=== PATIENT | female | born 1995 | race Caucasian/White ===

== ENCOUNTER 2021-03-02 03:41 | Inpatient (IN) ==
[2021-03-02] MEDS ORDERED: Naloxone 0.4 MG/ML INJ IVP PRN (04:08)
[2021-03-02] MEDS ORDERED: Ondansetron 4 MG/2 ML VIAL IVP PRN (04:08)
[2021-03-02] MEDS ORDERED: *HR* Nalbuphine 10 MG/ML AMPUL IV PRN (04:08)
[2021-03-02] MEDS ORDERED: Lidocaine 1% 20 ML MDV INFILT PRN (04:08)
[2021-03-02] MEDS ORDERED: miSOPROStoL 25 MCG TABLET PO PRN (04:08)
[2021-03-02] MEDS ORDERED: Famotidine 20 MG/2 ML VIAL IVP PRN (04:08)
[2021-03-02] MEDS ORDERED: Metoclopramide 10 MG/2 ML VIAL IVP PRN (04:08)
[2021-03-02 04:34] LABS: Eosinophils # 0.1 K/mcL (0.0-0.6); Eosinophils % 0.6 %; Hematocrit 35.8 % (35.3-44.9); Hemoglobin 11.6 g/dL (11.5-15.4); Immature Granulocytes % 0.3 % (0-4); Lymphocytes # 1.8 K/mcL (0.6-4.6); Lymphocytes % 18.5 %; Mean Corpuscular HGB Conc 32.4 g/dL (31.6-35.5); Mean Corpuscular Hemoglobin 27.7 pg (28.0-33.3); Mean Corpuscular Volume 85.4 fL (83.0-100.0); Mean Platelet Volume 9.5 fL (9.4-12.4); Monocytes # 0.6 K/mcL (0.0-1.3); Monocytes % 6.5 %; Neutrophils # 7.2 K/mcL (1.6-8.9); Platelet Count 255 K/mcL (140-400); Red Blood Count 4.19 M/mcL (3.82-4.97); Red Cell Distribution Width 15.1 % (11.5-14.5); Segmented Neutrophils % 74.1 %; White Blood Count 9.7 K/mcL (4.3-11.1)
[2021-03-02 04:45] LABS: Amphetamine Screen,Urine Negative ng/mL (Cutoff=1000); Barbiturate Screen,Urine Negative ng/mL (Cutoff=200); Benzodiazepines Screen,Urine Negative ng/mL (Cutoff=200); Cannabinoid Screen,Urine Negative ng/mL (Cutoff = 50); Cocaine Screen,Urine Negative ng/mL (Cutoff= 300); Opiate Screen,Urine Negative ng/mL (Cutoff=300); Phencyclidine Screen,Urine Negative ng/mL (Cutoff=25)
[2021-03-02] MEDS: Ringers Solution, Lactated 1,000 ML IVC SCH ×2 (05:22→10:39)
[2021-03-02 05:32] LABS: Influenza A PCR Negative (Negative); Influenza B PCR Negative (Negative); Resp. Syncytial Virus PCR Negative (Negative)
[2021-03-02 05:33] LABS: SARS-CoV-2 by PCR (In House) Negative (Negative)
[2021-03-02] MEDS ORDERED: Epidural Premix (fent/bupiv) 110 ML EP SCH (07:00)
[2021-03-02] MEDS ORDERED: EPHEDrine 50 MG/ML VIAL IVP PRN (07:00)
[2021-03-02] MEDS ORDERED: Oxytocin 20 units/ LR 1000 mL 20 UNIT/1,000 ML BAG IVC ONE (14:59)
[2021-03-02] MEDS ORDERED: Oxytocin 20 units/ LR 1000 mL 20 UNIT/1,000 ML BAG IVC SCH (15:15)
[2021-03-02] MEDS ORDERED: EPHEDrine 50 MG/ML VIAL ONE (17:09)
[2021-03-02] MEDS ORDERED: Ondansetron 4 MG/2 ML VIAL ONE (17:09)
[2021-03-02] MEDS ORDERED: *HR* FentaNYL (PF) 100 MCG/2 ML VIAL ONE (21:12)
[2021-03-02] MEDS ORDERED: Oxytocin 20 units/ LR 1000 mL 40 UNIT/2,000 ML BAG IVC ONE (23:32)
[2021-03-02] MEDS ORDERED: Chloroprocaine/PF 20 ML VIAL INFILT ONE (23:32)
[2021-03-02] MEDS ORDERED: Ketorolac 30 MG/ML VIAL ONE (23:52)
[2021-03-02] MEDS ORDERED: *HR* Morphine Sulfate/PF 10 MG/10 ML AMPUL ONE (23:53)
[2021-03-03] MEDS ORDERED: *HR* HYDROmorphone PF 0.5 MG/0.5 ML SYRINGE IVP PRN (00:07)
[2021-03-03] MEDS ORDERED: Promethazine 6.25 MG in Water for inj. (sterile) 20 ML IVPB PRN (00:07)
[2021-03-03] MEDS ORDERED: Ondansetron 4 MG/2 ML VIAL IVP PRN ×2 (00:07→03:32)
[2021-03-03] MEDS ORDERED: Ketamine *HR* 500 MG/10 ML MDV ONE (00:12)
[2021-03-03] MEDS ORDERED: Rho Immune Globulin 1,500 UNIT SYRINGE IM ONE ×2 (03:32→20:30)
[2021-03-03] MEDS ORDERED: Metoclopramide 10 MG/2 ML VIAL IVP PRN (03:32)
[2021-03-03] MEDS ORDERED: Simethicone 80 MG TAB.CHEW PO PRN (03:32)
[2021-03-03] MEDS ORDERED: Ringers Solution, Lactated 1,000 ML IVC SCH (03:32)
[2021-03-03] MEDS: *HR* OxyCODONE Immed Rel 5 MG TABLET PO PRN ×3 (03:52→17:45)
[2021-03-03] MEDS: Acetaminophen 325 MG TABLET PO SCH ×3 (03:52→17:46)
[2021-03-03 04:49] LABS: Basophils % 0.1 %; Eosinophils % 0.1 %; Immature Granulocytes % 0.4 % (0-4); Lymphocytes # 0.9 K/mcL (0.6-4.6); Lymphocytes % 8.7 %; Mean Corpuscular HGB Conc 32.3 g/dL (31.6-35.5); Mean Corpuscular Hemoglobin 27.9 pg (28.0-33.3); Mean Corpuscular Volume 86.6 fL (83.0-100.0); Mean Platelet Volume 9.7 fL (9.4-12.4); Monocytes # 0.8 K/mcL (0.0-1.3); Monocytes % 7.5 %; Neutrophils # 8.8 K/mcL (1.6-8.9); Platelet Count 192 K/mcL (140-400); Red Blood Count 3.58 M/mcL (3.82-4.97); Segmented Neutrophils % 83.2 %; White Blood Count 10.5 K/mcL (4.3-11.1)
[2021-03-03] MEDS: Oxytocin 20 units/ LR 1000 mL 20 UNIT/1,000 ML BAG IVC SCH ×2 (06:08→14:26)
[2021-03-03] MEDS: Prenatal Vit/FA 1 EACH TABLET PO SCH (08:27)
[2021-03-03] MEDS: metroNIDAZOLE 500 MG TABLET PO SCH ×3 (08:27→20:50)
[2021-03-03] MEDS: Ibuprofen 600 MG TABLET PO SCH ×3 (08:27→20:50)
[2021-03-03] MEDS: cephALEXin 500 MG CAPSULE PO SCH ×3 (08:28→20:50)
[2021-03-03] MEDS ORDERED: metroNIDAZOLE 500 MG TABLET PO SCH (09:00)
[2021-03-03] MEDS ORDERED: 0.9 % Sodium Chloride 500 ML IVC ONE (09:00)
[2021-03-04] MEDS: Acetaminophen 325 MG TABLET PO SCH (00:59)
[2021-03-04] MEDS: *HR* OxyCODONE Immed Rel 5 MG TABLET PO PRN ×2 (00:59→09:20)
[2021-03-04] MEDS: Ibuprofen 600 MG TABLET PO SCH (04:45)
[2021-03-04 08:30] VITALS: BP 103/60; PULSE 87; TEMP 98.7; O2SAT 94
[2021-03-04] MEDS ORDERED: *HR* Enoxaparin 150 MG/ML SYRINGE SQ SCH (09:00)
[2021-03-04] MEDS: cephALEXin 500 MG CAPSULE PO SCH (09:20)
[2021-03-04] MEDS: Prenatal Vit/FA 1 EACH TABLET PO SCH (09:20)
[2021-03-04] MEDS: metroNIDAZOLE 500 MG TABLET PO SCH (09:20)
== END 2021-03-04 16:00 | disposition home or self-care (01) | DRG 788 ==
LOC: 1NENULAB 03:41 → 1NENUOBS 03-03 03:19
PROVIDERS: ADMIT Student in an Organized Health Care Education/Training Program; ATTEND Student in an Organized Health Care Education/Training Program